=== PATIENT | female | born 1970 | race Caucasian/White ===

== ENCOUNTER → 2023-12-03 07:14 | Outpatient (REF) | payer BC, SELFPAY | LOC: HWRAD 07:14 | PROVIDERS: ATTENDING PHYSICIAN Physician Assistant; FAMILY PHYSICIAN Internal Medicine | DX: E04.1 Nontoxic single thyroid nodule (principal) | CPT/HCPCS: 76536 ==

== ENCOUNTER 2024-03-05 15:14 | Emergency (ER) | payer BC, SELFPAY ==
[2024-03-05 15:27] VITALS: BP 118/80
[2024-03-05 15:38] LABS: % Basophils 0.5 % (0-2); % Eosinophils 0.9 % (0-6); % Immature Granulocytes 0.2 % (0-0.5); % Lymphocytes 27.4 % (20.5-51.1); % Monocytes 9.1 % (1.7-9.3); % Neutrophils 61.9 % (42.2-75.2); Absolute Eosinophils 0.1 10^3/uL (0-0.7); Absolute Lymphocytes 1.6 10^3/uL (1.2-3.4); Absolute Monocytes 0.5 10^3/uL (0.1-0.6); Absolute Neutrophils 3.6 10^3/uL (1.4-6.5); Hematocrit 35.1 % (37.0-47.0); Hemoglobin 12.5 g/dL (12.0-16.0); Mean Corp Hgb Conc. 35.6 g/dL (33.0-37.0); Mean Corpuscular Hgb 30.4 pg (27.0-31.0); Mean Corpuscular Volume 85.4 fL (81.0-99.0); Mean Platelet Volume 9.2 fL (7.4-10.4); Nucleated Red Blood Cells % 0 %; Platelet Count 315 10^3/uL (130-400); Red Blood Cell Count 4.11 10^6/uL (4.20-5.40); Red Cell Dist. Width 12.9 % (11.5-14.5); White Blood Cell Count 5.8 10^3/uL (4.8-10.8)
[2024-03-05 16:13] LABS: ALT (SGPT) 15 U/L (0-35); AST (SGOT) 23 U/L (14-36); Albumin 4.7 g/dl (3.5-5.0); Alkaline Phosphatase 48 U/L (38-126); Blood Urea Nitrogen 14 mg/dl (7-17); Calcium 10.2 mg/dl (8.4-10.2); Carbon Dioxide 25 mmol/L (22-30); Chloride 100 mmol/L (98-107); Glucose 105 mg/dl (70-99); Potassium 4.2 mmol/L (3.5-5.1); Sodium 133 mmol/L (135-145); Total Bilirubin 0.6 mg/dl (0.2-1.3); Total Protein 7.5 g/dl (6.3-8.2); eGFR > 60.00
[2024-03-05 16:14] LABS: Troponin I 0.028 ng/ml
[2024-03-05 16:34] LABS: TSH Reflex To Free T4 1.16 uIU/ml (0.47-4.68)
[2024-03-05 16:35] VITALS: BP 120/62
[2024-03-05 16:37] VITALS: BMI 15.6
--- NOTE | 2024-03-05 16:57 | ED.GENMED ---
History of Present Illness
General
Chief Complaint: Heart Rate Problem
Source: patient and spouse
Exam Limitations: none
Time Seen by Provider: 03/05/24 16:36
Nursing documentation reviewed up to this point in time: agreed with
Travel History
Have you had any contact with someone who has COVID-19?: No
Do you have any symptoms of coronavirus? Fever > 100 degrees, chills, cough, shortness of breath, sore throat, loss of taste or smell, muscle aches, or headache?: No
History of Present Illness
History of Present Illness:
53-year-old female past ministry of anxiety presenting to the emergency department today with concerns of intermittent palpitations and shortness of breath over the past few days. Had an episode earlier today took a Xanax and seem to improve
symptoms. Denies any cardiac history. Denies any recent trauma surgery immobilization, leg swelling or history of blood clots. Denies any caffeine use or change in medications.
Past History
Past History
ED Past Medical History: None
ED Past Surgical History: None
Social History
Tobacco: Non-smoker
Review of Systems
Review of Systems
Allergies reviewed?: Yes
All Other Systems: ROS reviewed and negative except as documented in HPI and ROS
Phy Exam
Physical Exam
Physical Exam:
GENERAL: Alert , in no apparent distress
EYE: pupils equal and reactive
NECK: Supple, no significant adenopathy.
ENT: o/p clr, mmm.
CARDIAC: Regular rate and rhythm .
LUNGS: Clear breath sounds bilaterally, no acute respiratory distress, no wheezes/rales/rhonchi
ABDOMEN: Soft, without focal tenderness, no r/g, no cvat
NEUROLOGICAL: Alert and oriented, no focal neuro deficits
SKIN: Warm and dry, skin intact.
MUSCULOSKELETAL: No edema, well perfused.
PSYCH: Normal and appropriate interaction.
Course
Orders/Labs/Results
Orders:
Orders
03/05/24 15:18
EKG [Electrocardiogram (*1)] Urgent
Reason for Study: Palpitations
EKG- Treatment ONCE
03/05/24 15:33
Complete Blood Count/With Diff Urgent
Comprehensive Metabolic Panel Urgent
TSH Reflex To Free T4 Urgent
Troponin I Urgent
Abnormal Lab Results
03/05/24
15:33
RBC 4.11 L 10^6/uL
(4.20-5.40)
Hct 35.1 L %
(37.0-47.0)
Sodium 133 L mmol/L
(135-145)
Glucose 105 H mg/dl
(70-99)
03/05/24 15:33
03/05/24 15:33
Vital Signs
Initial and Last Documented VS:
Initial Vital Signs
Temp Pulse Resp BP Pulse Ox
98.7 F 85 18 118/80 99
03/05/24 15:27 03/05/24 15:27 03/05/24 15:27 03/05/24 15:27 03/05/24 15:27
Last Documented Vital Signs
Temp Pulse Resp BP Pulse Ox
98.7 F 85 18 118/80 100
03/05/24 15:27 03/05/24 15:27 03/05/24 15:27 03/05/24 15:27 03/05/24 16:37
MDM/Problems Addressed
MDM/Problems Addressed:
53-year-old female presenting to the emergency department today with concerns of palpitations and shortness of breath intermittently over the past few days episode earlier today prior to arrival took Xanax with symptoms. Upon arrival and throughout
ER stay vital signs are normal no distress labs unremarkable troponin negative EKG normal. Symptoms potentially consistent with anxiety but was advised for close outpatient follow-up with cardiology for further assessment. Return precautions given.
*Critical Care Note
Total Time (30-74mins, 75-104mins- exclusive of procedures): Not Applicable
ED Attending Note
-
Portions of this chart may have been created with voice recognition software.� Occasional wrong word or��sound alike� substitutions may have occurred due to the inherent limitations of voice recognition software.
Discharge Plan
Departure
Patient Disposition: Home (Routine Discharge)
Date of Disposition: 03/05/24
Time of Disposition: 16:58
Patient with high blood pressure during this ER visit?: No
Condition: Good
Covid-19: Not Applicable
Discharge Problem:
Heart palpitations
Instructions: Chest Pain CBC Follow Up
Prescriptions:
No Action
alprazolam [Xanax] 0.25 mg Tablet
0.25 mg PO PRN PRN (Reason: anxious)
bupropion HCl
1 tab PO DAILY
Activity Restrictions/Additional Instructions:
You came to the emergency department today with concerns of palpitations. Here your assessment was reassuring. Please follow closely with cardiology. Return to the emergency department for any worsening, new or concerning symptoms.
Interventions
Interventions:
*Risk Screen - Suicide Last Done: 03/05/24 15:27
*General Assessment Last Done: 03/05/24 15:27
*Neglect/Abuse Screening Last Done: 03/05/24 15:27
ED- Fall Risk Assessment Last Done: 03/05/24 16:37
*ED COVID-19 Vaccine History Last Done: 03/05/24 16:37
ED- Cardiac Assessment Last Done: 03/05/24 16:37
ED- Pulmonary Assessment Last Done: 03/05/24 16:37
Discharge Date and Time
Print Language: CROATIAN
[2024-03-05 17:00] VITALS: BP 104/59
== END 2024-03-05 17:37 | disposition home or self-care (01) ==
LOC: EMR 15:14
PROVIDERS: EMERGENCY PHYSICIAN Emergency Medicine; FAMILY PHYSICIAN Internal Medicine
DX: R00.2 Palpitations (principal)
CPT/HCPCS: 99283; 80053; 84443; 84484; 85025; 93005

== ENCOUNTER 2024-04-24 18:08 | Emergency (ER) | payer BC, SELFPAY ==
[2024-04-24 18:10] VITALS: BP 123/72
[2024-04-24 18:26] LABS: Urine Albumin Trace (Neg - Trace); Urine Bilirubin 3+ (Negative); Urine Character Clear (Clear); Urine Glucose Negative (Negative); Urine Ketone 2+ (Negative); Urine Leukocyte Trace (Negative); Urine Nitrite Positive (Negative); Urine Occult Blood Trace (Negative); Urine Urobilinogen 4+ (Neg - 1+)
[2024-04-24 18:27] LABS: Urine Color Orange
[2024-04-24 18:42] VITALS: BMI 17.0
[2024-04-24 18:43] VITALS: BP 131/83
[2024-04-24 18:46] LABS: Urine Bacteria Few (Negative); Urine White Cell 0-2 /HPF (0-5)
[2024-04-24 19:00] VITALS: BP 116/73
[2024-04-24] MEDS: ZOFRAN ODT (ORALLY DISINTEGRATING) 4 MG PO ×2 (19:28→19:45)
[2024-04-24] MEDS: Pyridium 100 MG PO (19:28)
--- NOTE | 2024-04-24 19:31 | ED.GENMED ---
History of Present Illness
General
Chief Complaint: Urinary Symptoms
Source: patient
Exam Limitations: none
Time Seen by Provider: 04/24/24 18:44
Nursing documentation reviewed up to this point in time: agreed with
History of Present Illness
History of Present Illness:
53-year-old female states she has burning with urination since this morning, she went to her primary doctor and was started on nitrofurantoin, she she has since started to feel nauseous, took one of the nitrofurantoin and vomited once. She denies
fever or chills, denies constipation or diarrhea, she had 1 loose stool today. She has absolutely no abdominal pain simply just burning with urination and nausea.
Past History
Past History
ED Past Medical History: Psychiatric (anxiety)
ED Past Surgical History: None
Social History
Tobacco: Non-smoker
Alcohol: None
Personal: Partner
Living: with roommate
Employment: Employed
Review of Systems
Review of Systems
Allergies reviewed?: Yes
All Other Systems: ROS reviewed and negative except as documented in HPI and ROS
Constitutional: Denies fever or chills
ABD/GI: Reports nausea and vomiting (vomited once today); Denies abdominal pain, diarrhea, constipated or anorexia
: Reports dysuria; Denies frequency, flank pain, incontinence, difficulty voiding, urgency, bleeding, dark urine or discharge
Musculoskeletal: Reports no symptoms
Skin: Reports no symptoms
Neurological: Reports no symptoms
Phy Exam
Physical Exam
Physical Exam:
GENERAL: No acute distress. A&Ox3.
CONSTITUTIONAL: Afebrile.
RESPIRATORY: Regular respirations, nonlabored, lungs clear.
CARDIOVASCULAR: Regular rate and rhythm, no murmurs, no rubs.
GI: Soft, nontender, normal BS
MUSCULOSKELETAL: Moves with ease. Well perfused.
SKIN: Warm, dry, pink
PSYCH: Normal mood and affect. Well kept, interactive and appropriate
NEUROLOGIC: Awake, alert and oriented. No focal neurological deficits
Course
Orders/Labs/Results
Orders:
Orders
04/24/24 18:17
Urinalysis Reflex To Culture Urgent
Date Specimen was Collected: 04/24/24
Time Specimen was Collected: 18:13
Urine Microscopic Reflex Cult Urgent
Urine Culture Urgent
YVONNE Source: U
Specimen Description:
Date Specimen was Collected: 04/24/24
Time Specimen was Collected: 18:13
04/24/24 19:17
Ondansetron Orally Disint [Zofran Odt (Orally Disintegrating)] 4 mg PO NOW STA
Phenazopyridine HCl [Pyridium] 100 mg PO NOW STA
04/24/24 19:31
Ondansetron Orally Disint [Zofran Odt (Orally Disintegrating)] 4 mg PO NOW STA
Abnormal Lab Results
04/24/24
18:17
Urine Ketones 2+ A
(Negative)
Ur Occult Blood Reflex Trace A
(Negative)
Urine Nitrite (Reflex) Positive A
(Negative)
Urine Bilirubin 3+ A
(Negative)
Urine Urobilinogen 4+ A
(Neg - 1+)
Leukocyte Esterase Rfl Trace A
(Negative)
Urine RBC 7-10 A /HPF
(0-2)
Urine Bacteria (Reflex) Few A
(Negative)
Vital Signs
Initial and Last Documented VS:
Initial Vital Signs
Temp Pulse Resp BP Pulse Ox
98.1 F 90 18 123/72 99
04/24/24 18:10 04/24/24 18:10 04/24/24 18:10 04/24/24 18:10 04/24/24 18:10
Last Documented Vital Signs
Temp Pulse Resp BP Pulse Ox
98.1 F 82 16 116/73 100
04/24/24 18:10 04/24/24 18:43 04/24/24 18:43 04/24/24 19:00 04/24/24 19:45
MDM/Problems Addressed
Differential Diagnosis Includes:
UTI, cystitis
MDM/Problems Addressed:
53-year-old female states she has burning with urination since this morning, she went to her primary doctor and was started on nitrofurantoin, she she has since started to feel nauseous, took one of the nitrofurantoin and vomited once. She denies
fever or chills, denies constipation or diarrhea, she had 1 loose stool today. She has absolutely no abdominal pain simply just burning with urination and nausea.
Afebrile, NAD
Abdomen benign, no flank pain, do not suspect kidney stone, pt will see her PCP in 2-3 days if no improvement.
Urine w +leukocytes, + nitrites, 7-10 RBCs, neg WBCs
After receiving a dose here, sent a prescription for Pyridium and Zofran to patient's pharmacy
*Critical Care Note
Total Time (30-74mins, 75-104mins- exclusive of procedures): Not Applicable
ED Attending Note
-
Portions of this chart may have been created with voice recognition software.� Occasional wrong word or��sound alike� substitutions may have occurred due to the inherent limitations of voice recognition software.
Discharge Plan
Departure
Patient Disposition: Home (Routine Discharge)
Date of Disposition: 04/24/24
Time of Disposition: 19:31
Patient with high blood pressure during this ER visit?: No
Condition: Good
Discharge Problem:
Dysuria
Instructions: Urinary Tract Infection, Adult (DC)
Prescriptions:
New
ondansetron 4 mg tablet,disintegrating
4 mg PO Q8H PRN (Reason: nausea/vomiting) 4 Days Qty: 10 0RF
phenazopyridine [Pyridium] 100 mg tablet
100 mg PO TID PRN (Reason: Pain) Qty: 12 0RF
No Action
alprazolam [Xanax] 0.25 mg Tablet
0.25 mg PO PRN PRN (Reason: anxious)
bupropion HCl
1 tab PO DAILY
Referrals:
Errol Powell MD [Family Provider] - Call in 1-3 days for appt
Activity Restrictions/Additional Instructions:
As we discussed, I sent a prescription to your pharmacy for Zofran for nausea and Pyridium for the burning with urination
Continue your current antibiotic, take it with a little food in your stomach
See your doctor in 2 to 3 days if you are not much improved by then.
Interventions
Interventions:
*Risk Screen - Suicide Last Done: 04/24/24 18:10
*General Assessment Last Done: 04/24/24 18:10
*Neglect/Abuse Screening Last Done: 04/24/24 18:10
ED- Fall Risk Assessment Last Done: 04/24/24 18:43
*ED COVID-19 Vaccine History Last Done: 04/24/24 18:43
*Nursing Disposition Last Done: 04/24/24 20:07
ED-Female Genitourinary Assessment Last Done: 04/24/24 18:43
Discharge Date and Time
Discharge Date/Time: 04/24/24 20:08
Print Language: URDU
== END 2024-04-24 20:08 | disposition home or self-care (01) ==
LOC: EMR 18:08
PROVIDERS: EMERGENCY PHYSICIAN Emergency Medicine; FAMILY PHYSICIAN Internal Medicine
DX: R30.0 Dysuria (principal); R11.2 Nausea with vomiting, unspecified
CPT/HCPCS: 99283; 81003; 81015; 87086